=== PATIENT | female | born 1985 | race American Indian/Alaskan Native ===

== ENCOUNTER 2020-07-07 02:42 | Emergency (ER) | payer SELFPAY ==
[2020-07-07 04:04] VITALS: BP 118/87
[2020-07-07] MEDS ORDERED: ACETAMINOPHEN 500 MG TAB PO ONE (04:53)
[2020-07-07] MEDS ORDERED: TETANUS,DIPH,PERTUSS(ACELL) VACCINE 0.5 ML SYRINGE IM ONE (04:54)
--- NOTE | 2020-07-07 05:32 | Cat Scan Report ---
CT HEAD WITHOUT CONTRAST HISTORY: head injury - bleeding COMPARISON: None TECHNIQUE: CT imaging of the head was performed in the axial, sagittal, and coronal projections and bone algori thm in axial projection in the soft tissue algorithm. All CT scans at this location are performed using CT dose reduction for ALARA by means of automated e xposure control. CONTRAST: None. FINDINGS: Cerebral and Cerebellar Hemispheres: No evidence of mass or mass effect. No midline shift. No acute hemorrhage. No acute cortical infarction. No extra-axial fluid collection. Ventricles: Normal in size and configuration for age. Osseous Structures: No significant abnormality. Visualized Paranasal Sinuses: No significant abnormality. Additional Findings: None IMPRESSION: 1. No acute intracranial abnormality. NOTE: Acute infarct may not be visible by noncontrast CT. Signer Name: Graeme Gaytan MD Signed: 07/07/2020 5:28 AM Workstation Name: [id number]
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
== END 2020-07-07 07:22 | disposition home or self-care (01) ==
LOC: ED 02:42
DX: S01.01XA Laceration without foreign body of scalp, initial encounter (principal); G44.319 Acute post-traumatic headache, not intractable; Z79.899 Other long term (current) drug therapy; Y04.8XXA Assault by other bodily force, initial encounter; Y93.89 Activity, other specified; Y92.89 Other specified places as the place of occurrence of the external cause; Y99.8 Other external cause status
CPT/HCPCS: 70450; 90471; 90715; 99284